=== PATIENT | male | born 1995 | race Caucasian/White ===

== ENCOUNTER 2017-07-04 01:38 | Emergency (ER) | payer OTHER | END 2017-07-04 02:59 | disposition home or self-care (01) | LOC: D.ER 01:38 | DX: S40.011A Contusion of right shoulder, initial encounter (principal); V49.9XXA Car occupant (driver) (passenger) injured in unspecified traffic accident, initial encounter; Y93.89 Activity, other specified; Y92.89 Other specified places as the place of occurrence of the external cause; M25.511 Pain in right shoulder; F90.9 Attention-deficit hyperactivity disorder, unspecified type ==

== ENCOUNTER → 2017-07-08 15:45 | Outpatient (CLI) | payer OTHER | END | disposition home or self-care (01) | LOC: D.MRI 15:45 | DX: M25.511 Pain in right shoulder (principal) ==

== ENCOUNTER → 2017-07-19 12:17 | Outpatient (CLI) | payer OTHER | END | disposition home or self-care (01) | LOC: D.MRI 12:17 | DX: R55 Syncope and collapse (principal) ==